=== PATIENT | female | born 1960 | race Caucasian/White ===

== ENCOUNTER 2021-05-10 15:26 | Emergency (ER) | payer MEDICAID ==
[~2021-05-10] VITALS: Ht 165.1 cm; Wt 78.0 kg
[2021-05-10 15:28] VITALS: BP 170/67
--- NOTE | 2021-05-10 15:48 | NUR ---
61 Y/O PANISH SPEAKING FEMALE BIBA C/O ANXIETY. PER EMT PT WAS DRIVING AND FELT THE NEED TO ORDER FULFILLMENT SPECIALIST BECAUSE SHE FELT LIKE SHE WAS HYPERVENTILATING. PT BP ON SCENE 190/100, ON ARRIVAL 170/67. PT DENIES N/V, DENIES PAIN, DENIES FEVER/CHILLS. DENIES PMH NKA
--- NOTE | 2021-05-10 15:58 | NUR ---
Dr. Sandoval is evaluating the patient at bedside.
--- NOTE | 2021-05-10 16:20 | NUR ---
bench technician at bedside.
--- NOTE | 2021-05-10 18:15 | NUR ---
PATIENT MOVED TO [facility]
[2021-05-10 19:10] LABS: BARBITURATE, URINE NEGATIVE ng/ml (NEG <=200); BENZODIAZEPINE, URINE NEGATIVE ng/mL (NEG <=200); CANNABINOID, URINE NEGATIVE ng/mL (NEG <=50); COCAINE, URINE NEGATIVE ng/mL (NEG <=300); OPIATE, URINE NEGATIVE ng/mL (NEG <=2000); PHENCYCLIDINE SCREEN,URINE NEGATIVE ng/mL (NEG <=25)
[2021-05-10 19:28] VITALS: BP 170/67
--- NOTE | 2021-05-10 19:28 | NUR ---
Patient discharged with v/s stable. Patient left without written and verbal after care instructions. Ambulatory with steady gait.
== END 2021-05-10 19:28 | disposition home or self-care (01) ==
LOC: MED 15:26
DX: F41.9 Anxiety disorder, unspecified (principal); I10 Essential (primary) hypertension
CPT/HCPCS: 36415; 71045; 80305; 81002; 81025; 84484; 85379; 93005; 99285